=== PATIENT | male | born 1950 | race Caucasian/White ===

== ENCOUNTER → 2017-08-19 | Outpatient (CLI) | payer MEDICARE ==
[~2017-08-19] MED LIST: ASPI-496 PO; ATOR-2 PO; CLOP75TA PO; DOCU-131 PO; FURO-93 PO; LISI5TAB7 PO; METO25TA4 PO; OXYC-302 PO
== END | disposition home or self-care (01) ==
LOC: CVU 12:27
PROVIDERS: ATTEND Internal Medicine Cardiovascular Disease
DX: I65.23 Occlusion and stenosis of bilateral carotid arteries (principal); I10 Essential (primary) hypertension; E78.4 Other hyperlipidemia
CPT/HCPCS: 93306; 93880

== ENCOUNTER → 2018-11-03 | Outpatient (CLI) | payer SELFPAY | END | disposition home or self-care (01) | LOC: CFH 12:37 | PROVIDERS: ATTEND Internal Medicine Cardiovascular Disease | DX: I65.23 Occlusion and stenosis of bilateral carotid arteries (principal) | CPT/HCPCS: 93880 ==